=== PATIENT | female | born 2000 | race African-American/Black ===

== ENCOUNTER 2020-12-04 08:00 | Outpatient (CLI) | payer SELFPAY ==
[2020-12-05 00:10] LABS: TRICHOMONAS VAGINALIS DNA NEGATIVE (NEGATIVE)
== END 2020-12-04 23:59 ==
LOC: LAB.N 08:00
PROVIDERS: ATTEND Nurse Practitioner
DX: N39.0 Urinary tract infection, site not specified (principal); Z11.3 Encounter for screening for infections with a predominantly sexual mode of transmission
CPT/HCPCS: 87086; 87181; 87491; 87591; 87661

== ENCOUNTER 2021-08-14 16:36 | Outpatient (CLI) | payer SELFPAY | END 2021-08-14 16:37 | disposition home or self-care (01) | LOC: COV 16:36 | PROVIDERS: ATTEND Family Medicine | DX: Z20.822 Contact with and (suspected) exposure to COVID-19 (principal) ==

== ENCOUNTER 2022-12-30 16:15 | Outpatient (CLI) | payer MEDICAID, OTHER | END 2022-12-30 16:30 | disposition home or self-care (01) | LOC: LAB.N 16:15 | PROVIDERS: ATTEND Physician Assistant Medical | DX: Z33.1 Pregnant state, incidental (principal) | CPT/HCPCS: 36415; 84702 ==

== ENCOUNTER 2023-01-01 15:30 | Outpatient (CLI) | payer OTHER | END 2023-01-01 15:31 | disposition home or self-care (01) | LOC: LAB 15:30 | PROVIDERS: ATTEND Nurse Practitioner | DX: Z33.1 Pregnant state, incidental (principal) | CPT/HCPCS: 36415; 84702 ==

== ENCOUNTER 2023-01-06 22:09 | Outpatient (CLI) | payer OTHER ==
--- NOTE | 2023-01-07 09:46 | Ultrasound Report ---
PROCEDURE: Pelvic w/Transvaginal INDICATIONS: SPONTANEOUS TECHNIQUE: Real-time scanning was performed of the pelvic organs, with image documentation. Additional endovagi nal scanning was necessary due to incomplete visualization of the adnexal and endometrial structures by transabdominal scanning. COMPARISON: None. FINDINGS: Uterus: Uterus is anteverted and normal in size at 8.4 x 4 by 5.7 cm. The myometrium is homogeneous . The endometrium measures 10 mm in combined thickness. Trilaminar appearance of the endometrium. C oarse calcification in the lower uterine segment, nonspecific but benign. Ovaries: The right ovary measures 2.6 x 2.7 x 2.7 cm, with a calculated ovarian volume of 10 cc. Th e left ovary measures 3.5 x 2.2 x 3 cm, with a calculated ovarian volume of 12 cc. The ovaries have a normal sonographic appearance. Less than 12 follicles can be seen in each ovary. No adnexal lyudmila s are seen. Other: Physiologic free fluid present in the pelvis. IMPRESSION: No products of conception identified. Trilaminar appearance of the endometrium. Reviewed by: Myles Patel on 01/07/2023 9:[address] [facility] Approved by: Myles Patel on 01/07/2023 9:[address] [facility] Station ID: [id number]
== END 2023-01-06 22:10 | disposition home or self-care (01) ==
LOC: DI 22:09
PROVIDERS: ATTEND Nurse Practitioner
DX: O03.9 Complete or unspecified spontaneous abortion without complication (principal)

== ENCOUNTER 2023-08-29 08:23 | Emergency (ER) | payer OTHER ==
--- NOTE | 2023-08-29 09:45 | ED Physician Documentation ---
PD HPI BACK PAIN - Stated complaint Stated Complaint: BACK INJ - Chief complaint Chief Complaint: Back Pain - History obtained from History obtained from: Patient - History of Present Illness Timing - onset: How many days ago (2) Timing - duration: Days (2) Timing - details: Gradual onset (onset of left lower back pain while lifting and moving at work. Had increase of the pain later that night and through yesterday/today.), Still present Location: Lower, Left Quality: Pain, Spasm, Aching Associated symptoms: No: Fever, Weakness, Numbness, Incontinent of urine Improves with: Rest Worsened by: Movement, Twisting Contributing factors: Lifting, Twisting Similar symptoms before: Has not had sx before Recently seen: Not recently seen Review of Systems Constitutional: denies: Fever, Chills Nose: denies: Rhinorrhea / runny nose, Congestion Throat: denies: Sore throat Respiratory: denies: Cough : denies: Incontinent Skin: denies: Rash, Lesions Musculoskeletal: reports: Back pain Neurologic: denies: Focal weakness, Numbness PD PAST MEDICAL HISTORY - Past Medical History Past Medical History: No - Past Surgical History Past Surgical History: No - Present Medications Home Medications: Ambulatory Orders Medication Instructions Recorded Confirmed HYDROcod/ACETAM 5/325 [[place] 5/325] 1 ea PO Q6H PRN #18 tablet 08/29/23 Meloxicam [Mobic] 7.5 mg PO BID 10 Days #20 tablet 08/29/23 methocarbamoL [Robaxin] 500 mg PO Q6H PRN #30 tablet 08/29/23 - Allergies Allergies/Adverse Reactions: Allergies Allergy/AdvReac Type Severity Reaction Status Date / Time No Known Drug Allergies Allergy Verified 08/29/23 08:44 - Social History Does the pt smoke?: No Smoking Status: Never smoker PD ED PE NORMAL - Vitals Vital signs reviewed: Yes - General General: Alert and oriented X 3, No acute distress, Well developed/nourished - Back Back: No CVA TTP, No spinal TTP, Other (tender left lumbar muscle area without trigger point per se. ) - Derm Derm: Normal color, Warm and dry Results - Labs Labs: Laboratory Tests 08/29/23 10:04 Urine Color YELLOW Urine Clarity HAZY Urine pH 6.0 Ur Specific [place] 1.010 Urine Protein NEGATIVE Urine Glucose (UA) NEGATIVE Urine Ketones NEGATIVE Urine Occult Blood NEGATIVE Urine Nitrite NEGATIVE Urine Bilirubin NEGATIVE Urine Urobilinogen 0.2 (NORMAL) Ur Leukocyte Esterase SMALL H Urine RBC None Seen Urine WBC 6-10 H Ur Squamous Epith Cells MOD Squamous H Urine Bacteria Rare Ur Microscopic Review INDICATED Urine Culture Comments NOT INDICATED Urine HCG, Qual NEGATIVE PD Medical Decision Making - ED course Complexity details: considered differential (mainly lower lumbar back muscular pain, but can check UA still. No red flags for back pain denoting no need for labs/imaging.), d/w patient Departure - Departure Disposition: Home, Self Care Clinical Impression: Low back strain Qualifiers: Encounter type: initial encounter Qualified Code(s): S39.012A - Strain of muscle, fascia and tendon of lower back, initial encounter Condition: Stable Record reviewed to determine appropriate education?: Yes Instructions: ED Low Back Pain Injury Follow-Up: Orthopedic Care [Provider Group] Prescriptions: Meloxicam [Mobic] 7.5 mg PO BID 10 Days #20 tablet HYDROcod/ACETAM 5/325 [[place] 5/325] 1 ea PO Q6H PRN #18 tablet PRN Reason: Pain methocarbamoL [Robaxin] 500 mg PO Q6H PRN #30 tablet PRN Reason: Spasms Comments: Heat or cold whichever feels better for the back. Massage or chiropractic or such can be helpful as well though it seems mostly muscular so massage might be more useful. Your urine test does not show any signs of infection or blood. This sounds muscular in nature. We will treat it with a combination of anti-inflammatories as well as Robaxin muscle relaxant. To that add Tylenol 500 to 650 mg every 4-6 hours if needed for pain or hydrocodone if needed for worse pain. I sent your prescriptions to [facility] pharmacy. Regarding work, off work for couple more days and then another 4 to 5 days of limited lifting bending and push pull as the back is healing. Follow-up with primary care or clinic or Ortho if not improved over the next several days or so and resolved by a week or 2. I am prescribing a short course of narcotic pain medication for you. These are potentially dangerous and addictive medications that should be used carefully. These medications may constipate you. Take an [id number] stool softener such as docusate twice daily with plenty of water while taking these medications. If you go 24 hours without a bowel movement, take [id number] MiraLAX, per package instructions. Do not drink or drive while taking these medications. If you received narcotic or sedating medications while in the emergency department do not drive for 24 hours. Store this medication in a safe, secure place and out of reach of children. It is a violation of federal law to give or sell this medication to another person or to use in a manner other than prescribed. The ED will not refill narcotic prescriptions, including prescriptions lost or stolen. You can dispose of unwanted medications at the [facility]'s office or at several pharmacies such as [facility]. Forms: Activity restrictions Discharge Date/Time: 08/29/23 11:38
[2023-08-29] MEDS ORDERED: HYDROcod/ACETAM 5/325 MG TABLET PO STA (10:01)
[2023-08-29] MEDS ORDERED: methocarbamoL 500 MG TABLET PO STA (10:01)
[2023-08-29] MEDS ORDERED: NAPROXEN 250 MG TABLET PO STA (10:01)
[2023-08-29 10:12] LABS: BILIRUBIN,URINE NEGATIVE (NEGATIVE); GLUCOSE, URINE (UA) NEGATIVE (NEGATIVE); KETONES,URINE (UA) NEGATIVE (NEGATIVE); LEUKOCYTE ESTERASE, URINE SMALL (NEGATIVE); NITRITE,URINE NEGATIVE (NEGATIVE); OCCULT BLOOD,URINE NEGATIVE (NEGATIVE); PROTEIN,URINE NEGATIVE (NEGATIVE); UROBILINOGEN,URINE 0.2 (NORMAL) E.U./dL (NORMAL)
[2023-08-29 10:14] LABS: CLARITY,URINE HAZY (CLEAR); HCG UR QUAL NEGATIVE
[2023-08-29 10:31] LABS: BACTERIA,URINE Rare /HPF (None Seen); RBC,URINE None Seen /HPF (0-5); SQUAMOUS EPITHELIAL CELL,UR MOD Squamous (<= Few)
[2023-08-29 11:40] VITALS: BP 109/71; O2SAT 100
== END 2023-08-29 11:38 | disposition home or self-care (01) ==
LOC: ED 08:23
DX: S39.012A Strain of muscle, fascia and tendon of lower back, initial encounter (principal); X50.0XXA Overexertion from strenuous movement or load, initial encounter; Y92.199 Unspecified place in other specified residential institution as the place of occurrence of the external cause; Y99.0 Civilian activity done for income or pay
CPT/HCPCS: 1040M; 81001; 81025; 99283; A9270; 81003; 87086

== ENCOUNTER 2023-09-01 07:14 | Outpatient (CLI) | payer OTHER | END 2023-09-01 07:15 | disposition critical access hospital (66) | LOC: EMS 07:14 | DX: R25.1 Tremor, unspecified (principal); R06.89 Other abnormalities of breathing; R41.82 Altered mental status, unspecified | CPT/HCPCS: A0425; A0427 ==

== ENCOUNTER 2023-09-01 07:35 | Emergency (ER) | payer OTHER ==
[2023-09-01] MEDS ORDERED: SODIUM CHLORIDE 0.9% 1,000 ML IV STA (07:55)
[2023-09-01] MEDS ORDERED: diphenhydrAMINE INJ 50 MG/ML VIAL IVP STA (07:55)
--- NOTE | 2023-09-01 07:56 | ED Physician Documentation ---
PD HPI ALTERED MENTAL STATUS - Stated complaint Stated Complaint: SHAKING - History obtained from History obtained from: Patient, EMS (eduardo Versed enroute to help with shakiness/anxious. Seemed some improved enroute. Not resolved.) - History of Present Illness Timing - onset: How many hours ago (3-4) Timing - details: Gradual onset, Still present (lessening) Quality / character: Agitated (shaking and tremoring after cannibis. She has done cannibis in the past without problems.) Contributing factors: Recent injury (had left low back strain at wrok few days ago and Rx robaxin, meloxicam and hydrocodone. She states meds somewhat helpful. Had not taken either since yesterday AM. [place] okay with meds.). No: Diabetic, Recent illness Basline status: Alert and oriented X 3, Ambulatory Recently seen: Emergency Dept (3 days ago for back pain.) Review of Systems Constitutional: denies: Fever, Chills Nose: denies: Rhinorrhea / runny nose, Congestion Throat: denies: Sore throat Respiratory: denies: Cough Skin: denies: Rash Neurologic: denies: Headache PD PAST MEDICAL HISTORY - Past Medical History Cardiovascular: None Respiratory: None Neuro: None Endocrine/Autoimmune: None - Past Surgical History Past Surgical History: No - Present Medications Home Medications: Ambulatory Orders Medication Instructions Recorded Confirmed HYDROcod/ACETAM 5/325 [[place] 5/325] 1 ea PO Q6H PRN #18 tablet 08/29/23 09/01/23 Meloxicam [Mobic] 7.5 mg PO BID 10 Days #20 tablet 08/29/23 09/01/23 methocarbamoL [Robaxin] 500 mg PO Q6H PRN #30 tablet 08/29/23 09/01/23 Cetirizine [ZyrTEC] 10 mg PO BID #15 tablet 09/01/23 dexAMETHasone [Decadron] 4 mg PO DAILY #5 tablet 09/01/23 - Allergies Allergies/Adverse Reactions: Allergies Allergy/AdvReac Type Severity Reaction Status Date / Time No Known Drug Allergies Allergy Verified 09/01/23 17:39 - Social History Does the pt smoke?: No Smoking Status: Never smoker PD ED PE NORMAL - Vitals Vital signs reviewed: Yes - General General: Alert and oriented X 3, Well developed/nourished, Other (somewhat blank staring though does anaswer questions yes/no and limited info otherwise. Having general shakiness but dampends with intentional movmenent.) - HEENT HEENT: Pharynx benign (no noted swelling. ) - Neck Neck: Supple, no meningeal sign, No adenopathy - Cardiac Cardiac: RRR, No murmur - Respiratory Respiratory: Clear bilaterally - Abdomen Abdomen: Soft, Non tender - Back Back: No spinal TTP (still with left lower back muscle tenderness similar to recent ED visit. ) - Derm Derm: Normal color, Warm and dry, Other (no noted hives nor rash. ) - Extremities Extremities: No tenderness to palpate Results - Vitals Vitals: Vital Signs - 24 hr 09/01/23 09/01/23 09/01/23 07:57 08:30 10:03 Temperature 36.5 C Heart Rate 83 66 62 Respiratory 14 15 15 Rate Blood Pressure 128/65 132/77 H 107/76 O2 Saturation 100 98 100 09/01/23 12:04 Temperature Heart Rate 71 Respiratory 12 Rate Blood Pressure 117/61 O2 Saturation 100 Oxygen O2 Source Room air - Labs Labs: Laboratory Tests 09/01/23 09/01/23 08:20 08:20 WBC 9.1 RBC 4.55 Hgb 13.1 Hct 39.8 MCV 87.5 MCH 28.8 MCHC 32.9 RDW 12.1 Plt Count 313 MPV 10.8 Neut # (Auto) 6.7 H Lymph # (Auto) 1.5 [place] # (Auto) 0.6 Eos # (Auto) 0.2 Baso # (Auto) 0.0 Absolute Nucleated RBC 0.00 Nucleated RBC % 0.0 Sodium 139 Potassium 4.0 Chloride 108 Carbon Dioxide 27 Anion Gap 4.0 L BUN 8 Creatinine 0.8 Estimated GFR (MDRD) 108 Glucose 98 Calcium 9.4 Magnesium 1.8 Total Bilirubin 0.2 AST 14 ALT 13 Alkaline Phosphatase 72 Total Creatine Kinase 139 Total Protein 7.3 Albumin 4.2 Globulin 3.1 Albumin/Globulin Ratio 1.4 Lipase 17 PD Medical Decision Making - ED course Complexity details: re-evaluated patient (Patient was sleepy from Versed by EMS but still shaky. COnsidering possible dystonia, gave Benadryl IV which helped reasonably well and shakiness stopped but more sleepy. Vitals/sats remained good. She improved over hour or so. [place] able to discharge. ), considered differential (does not appear seizure. Consider some dystonic response to cannibis. Consider interaction with recent Rx for back strain/pain, though last dosings yesterday AM. No fever nor headache nor neck stiff - does not seem infectious. NO head injury.), d/w patient Departure - Departure Disposition: 01 Home, Self Care Clinical Impression: Altered mental state, Shakiness, Adverse effect of cannabis, initial encounter Condition: Stable Record reviewed to determine appropriate education?: Yes Comments: I would presume a side effect of the cannabis. There may have been other i ngredients in it that caused a different reaction than usual. There may have been some residual or some interaction of the medications for your back pain even though you had not taken in the same day. There could have been some residual effect. Stay well-hydrated. Continue with the medications for your back pain. If not unusual for back pain strain episode to take several days or even a week or more for improvement. Activity as tolerated. Avoid cannabis for now until your back is doing better and not on the other medicines. Recheck if not fully improved through the course of today or other symptoms develop. Forms: PCP List Discharge Date/Time: 09/01/23 12:25
[2023-09-01 08:23] LABS: BASOPHILS % (AUTO) 0.3 %; EOSINOPHILS # (AUTO) 0.2 10^3/uL (0.0-0.7); EOSINOPHILS % (AUTO) 2.5 %; HCT - HEMATOCRIT 39.8 % (37.0-47.0); HGB - HEMOGLOBIN 13.1 g/dL (12.0-16.0); LYMPHOCYTES # (AUTO) 1.5 10^3/uL (1.5-3.5); LYMPHOCYTES % (AUTO) 16.2 %; MEAN CORPUSCULAR HEMOGLOBIN 28.8 pg (27.0-31.0); MEAN CORPUSCULAR HGB CONC 32.9 g/dL (32.0-36.0); MEAN CORPUSCULAR VOLUME 87.5 fL (81.0-99.0); MEAN PLATELET VOLUME 10.8 fL (7.9-10.8); MONOCYTES # (AUTO) 0.6 10^3/uL (0.0-1.0); MONOCYTES % (AUTO) 6.4 %; NEUTROPHILS # (AUTO) 6.7 10^3/uL (1.5-6.6); NEUTROPHILS % (AUTO) 74.1 %; PLT - PLATELET COUNT 313 10^3/uL (130-450); RED BLOOD COUNT 4.55 10^6/uL (4.20-5.40); RED CELL DISTRIBUTION WIDTH 12.1 % (12.0-15.0); WHITE BLOOD COUNT 9.1 x10^3/uL (4.8-10.8)
[2023-09-01 08:36] LABS: ALBUMIN 4.2 g/dL (3.2-5.5); ALBUMIN/GLOBULIN RATIO 1.4 (1.0-2.2); BILIRUBIN,TOTAL 0.2 mg/dL (0.2-1.0); CALCIUM 9.4 mg/dL (8.5-10.3); CREATININE 0.8 mg/dL (0.6-1.3); MAGNESIUM 1.8 mg/dL (1.7-2.3); TOTAL PROTEIN 7.3 g/dL (6.4-8.9)
[2023-09-01 11:05] VITALS: O2SAT 100
[2023-09-01] MEDS ORDERED: KETOROLAC 15 MG/ML VIAL IVP STA (11:51)
[2023-09-01] MEDS ORDERED: DEXAMETHASONE 10 MG/ML VIAL IVP STA (11:51)
[2023-09-01 12:09] VITALS: BP 117/61
== END 2023-09-01 12:25 | disposition home or self-care (01) ==
LOC: EDUNIT# → ED 07:35
DX: T78.1XXA Other adverse food reactions, not elsewhere classified, initial encounter (principal); R06.00 Dyspnea, unspecified; X58.XXXA Exposure to other specified factors, initial encounter
CPT/HCPCS: 36415; 80053; 82550; 83690; 83735; 85025; 96374; 96375; 99283; A9270; J1200

== ENCOUNTER 2023-09-01 17:35 | Emergency (ER) | payer OTHER ==
[2023-09-01 17:43] VITALS: BP 152/87; O2SAT 100
[2023-09-01] MEDS ORDERED: diphenhydrAMINE INJ 50 MG/ML VIAL IVP STA (17:43)
[2023-09-01] MEDS ORDERED: DEXAMETHASONE 10 MG/ML VIAL IVP STA (17:43)
[2023-09-01] MEDS ORDERED: CETIRIZINE 10 MG TABLET PO STA (17:43)
--- NOTE | 2023-09-01 17:44 | ED Physician Documentation ---
PD HPI DYSPNEA - Stated complaint Stated Complaint: SOA/SWOLLEN TONGUE - Chief complaint Chief Complaint: Allergic Rx - History obtained from History obtained from: Patient, Friend PD PAST MEDICAL HISTORY - Past Surgical History Past Surgical History: No - Present Medications Home Medications: Ambulatory Orders Medication Instructions Recorded Confirmed HYDROcod/ACETAM 5/325 [[place] 5/325] 1 ea PO Q6H PRN #18 tablet 08/29/23 09/01/23 Meloxicam [Mobic] 7.5 mg PO BID 10 Days #20 tablet 08/29/23 09/01/23 methocarbamoL [Robaxin] 500 mg PO Q6H PRN #30 tablet 08/29/23 09/01/23 Cetirizine [ZyrTEC] 10 mg PO BID #15 tablet 09/01/23 dexAMETHasone [Decadron] 4 mg PO DAILY #5 tablet 09/01/23 - Allergies Allergies/Adverse Reactions: Allergies Allergy/AdvReac Type Severity Reaction Status Date / Time No Known Drug Allergies Allergy Verified 09/01/23 17:39 - Social History Does the pt smoke?: No Smoking Status: Never smoker PD ED PE NORMAL - Vitals Vital signs reviewed: Yes - General General: Well developed/nourished, Other (appears anxious, shaky, tremoring. poor verbal attempting. 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 ) - HEENT HEENT: Pharynx benign (no noted edema/swelling of tongue, uvula, lips. ) - Neck Neck: Supple, no meningeal sign, No adenopathy - Cardiac Cardiac: RRR, No murmur - Respiratory Respiratory: Clear bilaterally (with fast breathing but no noted wheezing. ) - Abdomen Abdomen: Soft, Non tender - Derm Derm: Normal color, Warm and dry, No rash - Extremities Extremities: No edema - Neuro Neuro: No motor deficit, No sensory deficit Results - Vitals Vitals: Vital Signs - 24 hr 09/01/23 17:39 Temperature 36.8 C Heart Rate 96 Respiratory 32 H Rate Blood Pressure 152/87 H O2 Saturation 100 Oxygen O2 Source Room air PD Medical Decision Making - ED course Complexity details: reviewed results, re-evaluated patient (improved shakiness and feeling of dyspnea after Benadryl again. Sleepy but feeling better. Consider atypical allergic reaction to nuts (no hives, rash, edema but shakiness, agitation). ), considered differential (recurrence of shakiness and feeling of dyspnea. Had not taken any meds nor had further cannibis. Onset of symptoms after eating nuts/peanuts this afternoon. In retrospect, her friend says had had some nuts to eat during night along with the cannibis prior to onset earlier episode. ), d/w patient Departure - Departure Disposition: 01 Home, Self Care Clinical Impression: Shakiness, Dyspnea, Allergic reaction Condition: Stable Record reviewed to determine appropriate education?: Yes Instructions: ED Allergic Reaction General Other Prescriptions: dexAMETHasone [Decadron] 4 mg PO DAILY #5 tablet Cetirizine [ZyrTEC] 10 mg PO BID #15 tablet Comments: Given the timing of return of symptoms with eating not sent home and corresponding to eating some during the night in addition to the cannabis, it perhaps seems more likely allergic reaction to the knots rather than the medication or substance side effect. I would still avoid the cannabis and stay well-hydrated. However we can treat as possible allergic reaction with cetirizine twice daily f or the next several days to week and Decadron steroid daily for the next several days as well. I sent these prescriptions to your preferred pharmacy. See how your symptoms do through the course of this evening and tomorrow. Rather than a reaction to the not to could be coincidental and it was just the Benadryl wearing off earlier hopefully the cetirizine and steroids will continued have been an improvement. You can repeat the Benadryl later if needed. Return if worse symptoms overall. Forms: PCP List Discharge Date/Time: 09/01/23 18:45
== END 2023-09-01 18:45 | disposition home or self-care (01) ==
LOC: ED 17:35
DX: T78.1XXA Other adverse food reactions, not elsewhere classified, initial encounter (principal); R06.00 Dyspnea, unspecified
CPT/HCPCS: 96374